=== PATIENT | female | born 2000 | race Caucasian/White ===

== ENCOUNTER 2020-06-13 06:41 | Inpatient (IN) ==
[2020-06-13] MEDS ORDERED: Famotidine 20 MG/2 ML VIAL IVP PRN (08:34)
[2020-06-13] MEDS ORDERED: Naloxone 0.4 MG/ML INJ IVP PRN (08:34)
[2020-06-13] MEDS ORDERED: Metoclopramide 10 MG/2 ML VIAL IVP PRN (08:34)
[2020-06-13] MEDS ORDERED: Ondansetron 4 MG/2 ML VIAL IVP PRN (08:34)
[2020-06-13] MEDS ORDERED: *HR* Nalbuphine 10 MG/ML AMPUL IV PRN (08:34)
[2020-06-13] MEDS ORDERED: Oxytocin 20 units/ LR 1000 mL 20 UNIT/1,000 ML BAG IVC SCH ×2 (08:45→21:50)
[2020-06-13 09:06] LABS: Basophils # 0.1 K/mcL (0.0-0.2); Basophils % 0.7 %; Eosinophils # 0.3 K/mcL (0.0-0.6); Eosinophils % 2.4 %; Hematocrit 33.9 % (35.3-44.9); Hemoglobin 11.4 g/dL (11.5-15.4); Immature Granulocytes % 1.1 % (0-4); Lymphocytes # 1.6 K/mcL (0.6-4.6); Lymphocytes % 14.1 %; Mean Corpuscular HGB Conc 33.6 g/dL (31.6-35.5); Mean Corpuscular Hemoglobin 31.2 pg (28.0-33.3); Mean Corpuscular Volume 92.9 fL (83.0-100.0); Mean Platelet Volume 11.2 fL (9.4-12.4); Monocytes # 0.8 K/mcL (0.0-1.3); Monocytes % 7.2 %; Neutrophils # 8.3 K/mcL (1.6-8.9); Platelet Count 258 K/mcL (140-400); Red Blood Count 3.65 M/mcL (3.82-4.97); Red Cell Distribution Width 12.2 % (11.5-14.5); Segmented Neutrophils % 74.5 %; White Blood Count 11.2 K/mcL (4.3-11.1)
[2020-06-13 09:09] LABS: Protein/Creatinine Ratio,Urine 0.33 mg/mg (0.00-0.20)
[2020-06-13 09:17] LABS: Alanine Aminotransferase 8 Units/L (7-52); Aspartate Amino Transferase 14 Units/L (13-39); BUN/Creatinine Ratio 22 (6-26); Blood Urea Nitrogen 12 mg/dL (6-20); Lactate Dehydrogenase 176 Units/L (140-271); Uric Acid 4.7 mg/dL (2.3-7.6); eGFR For African Americans > 60 (> 60); eGFR For Non-African Americans > 60 (> 60)
[2020-06-13 09:30] LABS: Bacteria,Urine Few per hpf (None-Few); Bilirubin,Urine Negative (Negative); Blood,Urine Negative (Negative); Clarity,Urine Turbid (Clear); Color,Urine Light-Yellow (Yellow); Glucose,Urine (UA) Normal (Normal); Ketones,Urine Negative (Negative); Leukocyte Esterase,Urine Small (Negative); Mucus,Urine Few per lpf (None-Few); Nitrite,Urine Negative (Negative); PH,Urine 6.5 pH Units (5.0-8.0); Protein,Urine 30 mg/dL (Neg-Trace); Specific Gravity,Urine 1.019 (1.010-1.025); Squamous Epithelial Cell,Urine Moderate per hpf (None-Few); Urobilinogen,Urine Normal (Normal)
[2020-06-13] MEDS: Ringers Solution, Lactated 1,000 ML IVC SCH ×2 (09:38→15:37)
[2020-06-13 10:49] LABS: Influenza A PCR Negative (Negative); Influenza B PCR Negative (Negative); Resp. Syncytial Virus PCR Negative (Negative)
[2020-06-13 10:56] LABS: SARS-CoV-2 by PCR (In House) Negative (Negative)
[2020-06-13] MEDS ORDERED: *HR* FentaNYL (PF) 100 MCG/2 ML VIAL EP ONE (12:34)
[2020-06-13] MEDS ORDERED: EPHEDrine 50 MG/ML VIAL IVP PRN (12:34)
[2020-06-13] MEDS ORDERED: Epidural Premix (fent/bupiv) 110 ML EP SCH (12:45)
[2020-06-13] MEDS ORDERED: *HR* FentaNYL (PF) 100 MCG/2 ML VIAL ONE (15:39)
[2020-06-13] MEDS ORDERED: Ropivacaine/PF 0.2% 20 ML VIAL ONE (15:39)
[2020-06-13] MEDS ORDERED: Rho Immune Globulin 1,500 UNIT SYRINGE IM PRN (21:50)
[2020-06-13] MEDS ORDERED: Famotidine 20 MG TABLET PO PRN (21:50)
[2020-06-13] MEDS ORDERED: Measles/Mumps/Rubella Vacc 0.5 ML VIAL SQ PRN (21:50)
[2020-06-13] MEDS ORDERED: Acetaminophen 325 MG TABLET PO PRN (21:50)
[2020-06-13] MEDS ORDERED: Benzocaine/Menthol 56 GM AEROSOL SPRAY TP PRN (22:33)
[2020-06-13] MEDS ORDERED: Benzocaine/Menthol 56 GM AEROSOL SPRAY TP ONE (22:45)
[2020-06-14] MEDS ORDERED: Lanolin 7 G OINT...G. TP PRN (03:11)
[2020-06-14] MEDS: Ibuprofen 600 MG TABLET PO PRN ×3 (03:18→17:22)
[2020-06-14 04:12] LABS: Basophils % 0.2 %; Eosinophils # 0.1 K/mcL (0.0-0.6); Eosinophils % 0.5 %; Hematocrit 33.7 % (35.3-44.9); Hemoglobin 11.3 g/dL (11.5-15.4); Immature Granulocytes % 0.5 % (0-4); Lymphocytes # 1.3 K/mcL (0.6-4.6); Lymphocytes % 8.8 %; Mean Corpuscular HGB Conc 33.5 g/dL (31.6-35.5); Mean Corpuscular Hemoglobin 30.9 pg (28.0-33.3); Mean Corpuscular Volume 92.1 fL (83.0-100.0); Mean Platelet Volume 11.1 fL (9.4-12.4); Monocytes # 1.3 K/mcL (0.0-1.3); Monocytes % 8.9 %; Neutrophils # 11.6 K/mcL (1.6-8.9); Platelet Count 207 K/mcL (140-400); Red Blood Count 3.66 M/mcL (3.82-4.97); Segmented Neutrophils % 81.1 %; White Blood Count 14.3 K/mcL (4.3-11.1)
[2020-06-14] MEDS ORDERED: Multivit/Ca/Min/Fe/FA 1 TAB TABLET PO SCH (09:00)
[2020-06-14] MEDS ORDERED: Prenatal Vit/FA 1 EACH TABLET PO SCH (09:00)
[2020-06-14 14:47] VITALS: BP 123/78
== END 2020-06-14 18:58 | disposition home or self-care (01) | DRG 560 ==
LOC: 1NENULAB → OBSVTOIN 06:41 → 1NENULAB 08:33 → 1NENUOBS 21:51
PROVIDERS: ADMIT Obstetrics & Gynecology; ATTEND Obstetrics & Gynecology